=== PATIENT | male | born 1945 | race Caucasian/White ===

== ENCOUNTER 2018-09-09 13:11 | Inpatient (IN) ==
[2018-09-09 14:01] LABS: BASO# 0.03 X1000 (0.0-0.2); BASO% 0.5 % (0.0-0.8); EOS# 0.13 X1000 (0.0-0.7); EOS% 2.1 % (0.0-10.0); HEMATOCRIT 54.5 % (42.0-52.0); HEMOGLOBIN 18.1 g/dL (14.0-18.0); IMM GRAN# 0.04 X1000 (0.0-0.04); IMM GRAN% 0.6 % (0.0-0.5); LYMPH# 0.73 X1000 (1.2-3.4); LYMPH% 11.5 % (20.5-51.1); MCH 30.6 PG (27-31); MCHC 33.2 g/dL (33-37); MCV 92.2 FL (81-99); MONO# 0.39 X1000 (0.11-0.59); MONO% 6.2 % (1.7-9.3); MPV 10.1 FL (7.4-10.4); NEUT# 5.01 X1000 (1.4-6.5); NEUT% 79.1 % (42.2-75.2); PLT 240 X1000 (130-400); RBC 5.91 XMIL (4.7-6.1); RDW 14.8 % (11.5-14.5); WBC 6.33 X1000 (4.8-10.8)
[2018-09-09] MEDS ORDERED: DILAUDID IV ONE (14:10)
[2018-09-09] MEDS ORDERED: NS 1,000 ML IV ONE (14:11)
[2018-09-09 14:25] LABS: AGAP 13; ALB/GLOB RATIO 1.4; ALBUMIN 4.5 g/dL (3.5-5.0); ALKALINE PHOSPHATASE 84 U/L (32-122); BUN 14 mg/dL (8-22); CALCIUM 9.9 mg/dL (8.8-10.2); CHLORIDE 102 mmol/L (98-107); COSMO 284; ESTIMATED GFR > 60; GLUCOSE 180 mg/dL (70-104); GOT 27 U/L (10-34); GPT 21 U/L (10-44); POTASSIUM 4.1 mmol/L (3.5-5.1); SODIUM 140 mmol/L (136-145); TCO2 25 mmol/L (25-35); TOTAL BILIRUBIN 1.35 mg/dL (0.20-1.00); TOTAL PROTEIN 7.8 g/dL (6.3-8.3)
--- NOTE | 2018-09-09 14:25 | Diag Imaging Result Doc PS360 ---
EXAM: FLAT/UPRIGHT ABD/1 VIEW CHEST - 09/09/2018 HISTORY: abdominal pain TECHNIQUE: Supine and upright abdomen one view chest COMPARISON: 09/15/2016 chest two views FINDINGS: The bowel gas pattern is unremarkable. There is no free air identified. There is some residual oral contrast from the 09/08/2018 CT abdomen/pelvis in the colon. Upright chest shows stable cardiomegaly. There are sternal wires from previous surgery again seen. There are stable mild interstitial scarring. There is no consolidation, pleural effusion, or pneumothorax identified. IMPRESSION: Unremarkable bowel gas pattern. Stable cardiomegaly and mild pulmonary interstitial scarring. Electronically signed by Leonel Chan 09/09/2018 2:23 PM
[2018-09-09] MEDS ORDERED: D5 1/2 NS 1,000 ML IV ONE (15:39)
[2018-09-09] MEDS ORDERED: NORCO-10 PO PRN (15:43)
[2018-09-09] MEDS ORDERED: COLACE PO SCH (15:45)
[2018-09-09] MEDS ORDERED: ZOFRAN IV ONE (15:46)
--- NOTE | 2018-09-09 15:52 | PROVIDER DOCUMENTATION ---
This chart was entered by Filomena Land Scribe, acting as scribe for Wagner Pelayo DO. HPI-General Adult - General Chief Complaint: Groin Pain Stated Complaint: HERNIA PAIN Time Seen by Provider: 09/09/18 13:25 Source: patient Allergies/Adverse Reactions: Patient Allergies Allergy/AdvReac Type Severity Reaction Status Date / Time levofloxacin [From Levaquin] Allergy RASH Verified 09/09/18 13:23 Hmbpqmy-Ist-Jcq Reductase AdvReac Unknown Verified 09/09/18 13:23 Inhibitor Home Medications: Home Medication List Medication Instructions Recorded Confirmed Last Taken Type Trazodone [Desyrel] 75 mg PO QHS 12/02/11 09/07/18 09/06/18 History Aspirin [Adult Low Dose Aspirin EC] 81 mg PO HS 12/02/16 09/07/18 09/06/18 History Furosemide [Lasix] 40 mg PO DAILY 12/02/16 09/07/18 09/06/18 History Potassium Chloride 10 meq PO DAILY 12/02/16 09/07/18 09/06/18 History Allopurinol [Zyloprim] 300 mg PO PRN PRN 09/07/18 09/07/18 Unknown History Apixaban [Eliquis] 5 mg PO BID 09/07/18 09/07/18 09/07/18 History Valsartan 160 mg PO DAILY 09/07/18 09/07/18 09/06/18 History Vortioxetine Hydrobromide 10 mg PO DAILY 09/07/18 09/07/18 09/06/18 History [Trintellix] Oxycodone HCl/Acetaminophen 1 - 2 ea PO Q6-8H PRN PRN #20 tab 09/08/18 Unknown Rx [Percocet 5-325 mg Tablet] - History of Present Illness -Gen Adult Nature of Presenting Problems: 72 y/o male presents to ED with worsening L groin pain onset 2 days ago. Pt reports he has an inguinal hernia and was seen in ED Monday for same. Pt states lying down exacerbates his pain. Pt reports he took oxycodone prior to arrival and he feels better now. Pt also complains of chronic L shoulder pain. Pt is alert and oriented. Location of Pain/Injury: reports: upper extremity, other (L groin) Pain Radiation: reports: no radiation Quality of Pain: reports: sharp Severity: reports: moderate, severe Onset/Duration: reports: 2 days ago Timing: reports: still present Context/Activities at Onset: reports: none Modifying Factors: worse with: lying down, palpation Associated Symptoms: reports: joint pain (L shoulder), other (L groin pain) Similar Symptoms Previously?: Yes Recently seen or treated by another doctor?: Yes Review of Systems - Adult - REVIEW OF SYSTEMS - ADULT Constitutional: denies: chills, fever Eyes: reports: no symptoms reported Ears, Nose, Mouth & Throat: reports: no symptoms reported Cardiovascular: denies: chest pain, palpitations Respiratory: denies: cough, shortness of breath Gastrointestinal: reports: other (L groin pain). denies: abdominal pain, diarrhea, nausea, vomiting Genitourinary: reports: no symptoms reported Musculoskeletal: reports: joint pain (L shoulder). denies: back pain Integumentary: reports: no symptoms reported Neurological: denies: dizziness/vertigo, seizure Psychiatric: reports: no symptoms reported Endocrine: reports: no symptoms reported Hematologic/Lymphatic: reports: no symptoms reported Allergic/Immunologic: reports: no symptoms reported All Other Systems: Reviewed and Negative Past History - Adult - PAST MEDICAL HISTORY-ADULT Review of Records: reports: Old Records Reviewed, Nursing Assessment Review, Medications Reviewed Major Childhood Illnesses: reports: denies history Cardiovascular: reports: A-Fib (cardioverted), CAD, CHF, HTN, hyperlipidemia, [place] Respiratory: reports: COPD, sleep apnea Genitourinary: reports: kidney stones Neurological: reports: cancer/tumor (brain) Psychiatric: reports: anxiety, depression Endocrine/Immune: reports: Diabetes - PRIOR SURGERIES/PROCEDURES Surgical/Procedure History: reports: appendectomy, CABG, cardiac stent, hernia repair, other (brain cysts removal; kidney stent; brain tumor removed; cystoscopy; cardioversion) - IMMUNIZATION STATUS Childhood Immunizations: See Nurse Assessment Flu Vaccine: See Nurse Assessment - FAMILY HISTORY Family History: reviewed, not pertinent - SOCIAL HISTORY Smoking: quit greater than 1 year Substance Use: none/never Alcohol Use Frequency: never Living Situation: family Physical Exam-General - PHYSICAL EXAM-ADULT Initial Vital Signs Reviewed: Yes - CONSTITUTIONAL General Appearance: appears well, alert, no apparent distress - EYES Eyes: PERRL/EOMI, pink conjunctivae - HEAD, EARS, NOSE, MOUTH & THROAT HENMT: normocephalic/atraumatic, moist mucous membranes, normal ENT inspection - NECK Neck: non-tender, full range of motion - RESPIRATORY Respiratory: chest non-tender, lungs clear, normal breath sounds, other (scar from CABG to anterior chest) - CARDIOVASCULAR Cardiovascular: normal peripheral pulses, regular rate, rhythm - GASTROINTESTINAL (ABDOMEN) Abdominal Exam: normal bowel sounds, soft, tenderness (L groin), hernia (L inguinal) - MUSCULOSKELETAL Back Exam: normal inspection, no CVA tenderness, no vertebral tenderness Extremity: normal range of motion, non-tender, normal gait, other (lengthy scar to L medial leg) - SKIN Integumentary: normal color, warm/dry, other (scar from CABG to anterior chest; lengthy scar to L medial leg) - NEUROLOGIC Neurologic: grossly normal - PSYCHIATRIC Psych/Mental Status: normal mood/affect, normal thought content, normal thought process, oriented x 3 Progress - PLAN OF CARE/RESULTS Progress/Plan/Lab Results: Vital Signs - 8 hr 09/09/18 13:12 Temperature 98.0 F Pulse Rate 87 Respiratory Rate 20 Blood Pressure 161/98 O2 Sat by Pulse Oximetry 96 Orders Category Date Time Status FLAT/UPRIGHT ABD/1 VIEW CHEST [RAD] Stat Exams 09/09/18 13:33 Ordered CBC WITH ELECTRONIC DIFF [HEME] Stat Lab 09/09/18 13:33 Uncollected COMPREHENSIVE METABOLIC PANEL [CHEM] Stat Lab 09/09/18 13:33 Ordered Laboratory Tests 09/09/18 09/09/18 13:45 13:45 WBC 6.33 RBC 5.91 Hgb 18.1 H Hct 54.5 H MCV 92.2 MCH 30.6 MCHC 33.2 RDW Std Deviation 14.8 H Plt Count 240 MPV 10.1 Immature Gran % (Auto) 0.6 H Neut % (Auto) 79.1 H Lymph % (Auto) 11.5 L [place]he % (Auto) 6.2 Eos % (Auto) 2.1 Baso % (Auto) 0.5 Immature Gran # (Auto) 0.04 Neut # (Auto) 5.01 Lymph # (Auto) 0.73 L [place]he # (Auto) 0.39 Eos # (Auto) 0.13 Baso # (Auto) 0.03 Sodium 140 Potassium 4.1 Chloride 102 Carbon Dioxide 25 Anion Gap 13 BUN 14 Creatinine 1.0 Estimated GFR/1.73 m2 > 60 BUN/Creatinine Ratio 14 Glucose 180 H Calculated Osmolality 284 Calcium 9.9 Total Bilirubin 1.35 H AST 27 ALT 21 Alkaline Phosphatase 84 Total Protein 7.8 Albumin 4.5 Globulin 3.3 Albumin/Globulin Ratio 1.4 Result Diagrams: 09/09/18 13:45 09/09/18 13:45 - EKG 1 Time of EKG reading by physician:: 13:42 EKG Read and Signed by:: Wagner Pelayo EKG Interpretation (*Must complete 3 of following elements*): Abnormal Rate: 78 Rhythm: Afib with a competing junctional pacemaker Gautier: normal QRS: normal NH Interval: normal ST Wave: normal - XRAY 1 XRAY Study: Abdomen Impression: See EMR Report ([facility] [address], [address], [place] [address] Department of Imaging Patient: MARCO ANTONIO MCCORMACK [facility] Date: 09/09/18#: [id number] : 1945DM Status: REG ERAt#: [id number] Age/Sex: 72/MRoom/Bed: Loc: ED Ordering Physician: Wagner Pelayo DO Family Physician: Wagner Pelayo DO Reason for Procedure: abdominal pain Signed EXAM: FLAT/UPRIGHT ABD/1 VIEW CHEST - 09/09/2018 HISTORY: abdominal pain TECHNIQUE: Supine and upright abdomen one view chest COMPARISON: 09/15/2016 chest two views FINDINGS: The bowel gas pattern is unremarkable. There is no free air identified. There is some residual oral contrast from the 09/08/2018 CT abdomen/pelvis in the colon. Upright chest shows stable cardiomegaly. There are sternal wires from previous surgery again seen. There are stable mild interstitial scarring. There is no consolidation, pleural effusion, or pneumothorax identified. IMPRESSION: Unremarkable bowel gas pattern. Stable cardiomegaly and mild pulmonary inters titial scarring. Electronically signed by Leonel Chan 09/09/2018 2:23 PM 09/09/18 1423 Interpreting Physician: Leonel Chan MD Dictated Date/Time: 09/09/18 1419 cc: Wagner Pelayo DO; Wagner Pelayo DO) - CONSULTS/PCP/HOSPITALIST Notification #1 *Consult/PCP/Hospitalist*: Dr. Pan Time Discussed: 14:35 Reason/Comments: L inguinal hernia Consult Disposition: Will see in ED Departure - Departure Date of Disposition Decision: 09/09/18 Time of Disposition Decision: 15:33 DIAGNOSIS: Left inguinal hernia Disposition: ADMITTED INPATIENT 09 Certified Medical Emergency: Emergent Condition: Stable Referrals and Follow-Ups: Wagner Pelayo DO [Primary Care Provider] - - Critical Care Note This patient required my direct & personal management of CC.: No Attestation - Physician/ RAMONE Attestation Patient care was provided by Advanced Practice Provider:: No The physician spent face to face time with patient:: Yes Advanced Practice Provider documentation review:: Supervising physician onsite and consulted in the evaluation and care of this patient. The physician did have a face to face encounter with the patient. This chart was documented by the indicated scribe, (Filomena Ladn Scribe) and accurately reflects the services I performed and decisions made by me, Wagner Pelayo DO, as attested by the provider's signature.
[2018-09-09] MEDS ORDERED: LOVENOX SUBQ SCH ×2 (16:00→17:00)
[2018-09-09] MEDS: D5 1/2 NS 1,000 ML IV SCH (18:17)
[2018-09-09] MEDS: DIOVAN PO SCH ×2 (18:18→18:49)
[2018-09-09] MEDS: NORCO-10 PO PRN (18:19)
[2018-09-09] MEDS: LASIX IV SCH (18:19)
[2018-09-09] MEDS: ZYLOPRIM PO SCH (18:27)
[2018-09-09] MEDS: DILAUDID IV PRN ×2 (19:53→22:59)
[2018-09-09] MEDS: COLACE PO SCH ×2 (19:56→23:23)
[2018-09-09] MEDS: ZOFRAN PO PRN (19:57)
[2018-09-09] MEDS: DULCOLAX PR SCH ×2 (19:58→23:23)
[2018-09-09] MEDS ORDERED: DULCOLAX PR SCH (21:00)
[2018-09-09] MEDS: ZOFRAN IV PRN (22:58)
[2018-09-10] MEDS: DILAUDID IV PRN ×3 (01:59→07:01)
[2018-09-10] MEDS: ZOFRAN IV PRN ×3 (01:59→16:42)
[2018-09-10] MEDS: ZOFRAN PO PRN (01:59)
--- NOTE | 2018-09-10 07:07 | EKG Report ---
Test Performed on : 09/09/2018 1:42:00 PM Test Reason : abdominal pain Blood Pressure : / mmHG Vent. Rate : 078 BPM Atrial Rate : 100 BPM P-R Int : 000 ms QRS Dur : 096 ms QT Int : 402 ms P-R-T Axes : 000 068 020 degrees QTc Int : 458 ms Atrial fibrillation. with a competing junctional pacemaker. Abnormal ECG When compared with ECG of 06-APR-2016 22:39, No significant change was found Unconfirmed Result
[2018-09-10] MEDS: DIOVAN PO SCH ×2 (08:37→10:56)
[2018-09-10] MEDS: ZYLOPRIM PO SCH (08:37)
[2018-09-10] MEDS: LASIX IV SCH ×2 (08:37→08:40)
[2018-09-10] MEDS: COLACE PO SCH ×2 (08:37→21:33)
[2018-09-10] MEDS: D5 1/2 NS 1,000 ML IV SCH ×2 (10:56→17:45)
[2018-09-10] MEDS: NORCO-10 PO PRN ×2 (11:54→18:27)
[2018-09-10] MEDS ORDERED: GOLYTELY PO ONE (13:00)
--- NOTE | 2018-09-10 14:49 | EKG Report ---
Test Performed on : 09/10/2018 2:03:50 PM Test Reason : afib Blood Pressure : / mmHG Vent. Rate : 068 BPM Atrial Rate : 267 BPM P-R Int : 000 ms QRS Dur : 094 ms QT Int : 438 ms P-R-T Axes : 000 080 -12 degrees QTc Int : 465 ms Atrial fibrillation. Abnormal QRS-T angle, consider primary T wave abnormality Abnormal ECG When compared with ECG of 09-SEP-2018 13:42, (Unconfirmed) No significant change was found Confirmed by Cathleen LANGSTON, Rj Dee ([id number]) on 09/10/2018 5:06:44 PM
--- NOTE | 2018-09-10 15:03 | CARDIOLOGY CONSULTATION ---
DATE: 09/10/2018 REASON FOR CONSULTATION: Patient is admitted for left inguinal surgery and has significant cardiac history. Cardiology was consulted. HISTORY OF PRESENT ILLNESS: Mr. Candelaria was a 72-year-old gentleman who was admitted for inguinal hernia surgery. From a cardiac standpoint, he does not complain of chest pain. He has shortness of breath which has been stable. He takes Lasix on a p.r.n. basis. He is in chronic atrial fibrillation. There is no dizziness or syncope. REVIEW OF SYSTEMS: A 14-point review of systems was done. Gastrointestinal System: There is no history of nausea, vomiting, diarrhea. There is no history of hematemesis or melena. Central Nervous System: No focal weakness to suggest a CVA or TIA. Genitourinary System: There is no dysuria or hematuria. PAST MEDICAL HISTORY: 1. Coronary artery disease status post coronary artery bypass grafting 04/24/2006 with GARCIA to left anterior descending artery, SVG to OM, SVG to PDA, SVG to diagonal. 2. Chronic atrial fibrillation. Had ablation in 2012. Had recurrence in 2014. Underwent cardioversion. Is currently in persistent atrial fibrillation. 3. He has also had atrial flutter for which he underwent ablation in 2012. 4. Cardiomyopathy ejection fraction of 50% in the past. 5. History of diastolic heart failure. 6. Hypertension diabetes. 7. Inguinal hernia. MEDICATION: His home medications include: 1. Trazodone 75. 2. Potassium supplements. 3. Lasix p.r.n. 4. Enteric-coated aspirin 81. 5. Allopurinol 300 at bedtime. 6. Valsartan 160. 7. Trintellix 10 mg a day. 8. Eliquis 5 mg p.o. b.i.d. 9. Pain medications. ALLERGIES: He is allergic to levofloxacin and statins. PHYSICAL EXAMINATION: Blood pressure was 115/76. First and second heart sounds were heard. There was no S3 gallop. Respiratory System: Distant breath sounds. There are no crepitations or rhonchi. Abdomen was soft. Examination of extremities revealed trace edema. ASSESSMENT AND PLAN: Mr. Jeremiah Candelaria is a 72-year-old gentleman with: 1. History of coronary artery disease. 2. Coronary artery bypass grafting. 3. Chronic atrial fibrillation. 4. Chronic obstructive pulmonary disease. 5. History of diastolic heart failure. 6. Hypertension. He is currently stable. Electrocardiogram revealed atrial fibrillation, rate under control. RECOMMENDATIONS: I have not made any changes. His Eliquis has been held, given his elevated CHADS-VASc score. We will give him Lovenox, 2 doses. He is scheduled to undergo surgery on Monday afternoon. Restart Eliquis after surgery to when Dr. Walls deems fit. In the interim, we will continue with his STUART inhibitors and Lasix, as well. Thank you for the consult. We will follow hospital course. cc: MD Bogdan Mcneill MD
[2018-09-10] MEDS: LASIX PO SCH (15:28)
[2018-09-10] MEDS: LOVENOX SUBQ SCH (15:31)
[2018-09-10] MEDS ORDERED: TRINTELLIX PO SCH (18:45)
[2018-09-10] MEDS: TRINTELLIX PO SCH (21:32)
[2018-09-10] MEDS: DESYREL PO SCH (21:33)
[2018-09-10] MEDS: DULCOLAX PR SCH (21:42)
[2018-09-11] MEDS: NORCO-10 PO PRN ×3 (00:33→21:03)
[2018-09-11] MEDS: LOVENOX SUBQ SCH (04:30)
[2018-09-11] MEDS: D5 1/2 NS 1,000 ML IV SCH (06:30)
[2018-09-11 06:46] LABS: BASO# 0.05 X1000 (0.0-0.2); BASO% 0.8 % (0.0-0.8); EOS# 0.38 X1000 (0.0-0.7); EOS% 5.9 % (0.0-10.0); HEMOGLOBIN 16.1 g/dL (14.0-18.0); IMM GRAN# 0.02 X1000 (0.0-0.04); IMM GRAN% 0.3 % (0.0-0.5); LYMPH# 1.37 X1000 (1.2-3.4); LYMPH% 21.2 % (20.5-51.1); MCH 31.1 PG (27-31); MCHC 32.9 g/dL (33-37); MCV 94.8 FL (81-99); MONO# 0.75 X1000 (0.11-0.59); MONO% 11.6 % (1.7-9.3); MPV 10.7 FL (7.4-10.4); NEUT# 3.89 X1000 (1.4-6.5); NEUT% 60.2 % (42.2-75.2); PLT 191 X1000 (130-400); RBC 5.17 XMIL (4.7-6.1); RDW 14.7 % (11.5-14.5); WBC 6.46 X1000 (4.8-10.8)
[2018-09-11 06:56] LABS: AGAP 10; BUN 14 mg/dL (8-22); CHLORIDE 104 mmol/L (98-107); COSMO 287; CREATININE 0.9 mg/dL (0.7-1.2); ESTIMATED GFR > 60; GLUCOSE 134 mg/dL (70-104); POTASSIUM 3.9 mmol/L (3.5-5.1); SODIUM 143 mmol/L (136-145); TCO2 29 mmol/L (25-35)
[2018-09-11] MEDS ORDERED: TRINTELLIX PO SCH (09:00)
[2018-09-11] MEDS: LASIX PO SCH (09:32)
[2018-09-11] MEDS: FLEET ENEMA PR ONE ×2 (09:32→15:09)
[2018-09-11] MEDS: TRINTELLIX PO SCH ×2 (09:32→09:34)
[2018-09-11] MEDS: DIOVAN PO SCH (09:32)
[2018-09-11] MEDS: COLACE PO SCH ×2 (09:32→21:02)
[2018-09-11] MEDS: KLOR-CON PO SCH (09:32)
[2018-09-11] MEDS: ZYLOPRIM PO SCH (09:32)
[2018-09-11] MEDS ORDERED: CALMOSEPTINE OINTMENT TOP PRN (15:12)
[2018-09-11] MEDS: ZOFRAN IV PRN (16:21)
[2018-09-11] MEDS: DESYREL PO SCH (21:02)
[2018-09-11] MEDS: ZOFRAN PO PRN (21:03)
[2018-09-11] MEDS: DULCOLAX PR SCH (21:05)
[2018-09-12] MEDS ORDERED: ATIVAN IV ONE (05:05)
[2018-09-12] MEDS: COLACE PO SCH ×2 (08:29→21:07)
[2018-09-12] MEDS: LASIX PO SCH (08:30)
[2018-09-12] MEDS: KLOR-CON PO SCH (08:30)
[2018-09-12] MEDS: TRINTELLIX PO SCH (08:30)
[2018-09-12] MEDS: ZYLOPRIM PO SCH (08:30)
[2018-09-12] MEDS: DIOVAN PO SCH (08:31)
[2018-09-12 08:37] LABS: BASO# 0.05 X1000 (0.0-0.2); BASO% 0.8 % (0.0-0.8); EOS# 0.36 X1000 (0.0-0.7); EOS% 6.1 % (0.0-10.0); HEMATOCRIT 47.8 % (42.0-52.0); HEMOGLOBIN 15.6 g/dL (14.0-18.0); IMM GRAN# 0.03 X1000 (0.0-0.04); IMM GRAN% 0.5 % (0.0-0.5); LYMPH# 0.88 X1000 (1.2-3.4); LYMPH% 14.9 % (20.5-51.1); MCH 30.9 PG (27-31); MCHC 32.6 g/dL (33-37); MCV 94.7 FL (81-99); MONO# 0.59 X1000 (0.11-0.59); MPV 11.1 FL (7.4-10.4); NEUT# 4.01 X1000 (1.4-6.5); NEUT% 67.7 % (42.2-75.2); PLT 194 X1000 (130-400); RBC 5.05 XMIL (4.7-6.1); RDW 14.5 % (11.5-14.5); WBC 5.92 X1000 (4.8-10.8)
[2018-09-12 08:53] LABS: AGAP 11; BUN 9 mg/dL (8-22); CALCIUM 9.1 mg/dL (8.8-10.2); CHLORIDE 102 mmol/L (98-107); COSMO 283; ESTIMATED GFR > 60; GLUCOSE 118 mg/dL (70-104); POTASSIUM 3.4 mmol/L (3.5-5.1); SODIUM 142 mmol/L (136-145); TCO2 29 mmol/L (25-35)
[2018-09-12] MEDS ORDERED: FENTANYL ONE ×2 (10:16→10:23)
[2018-09-12] MEDS ORDERED: DIPRIVAN 1% ONE ×2 (10:16→10:23)
[2018-09-12] MEDS ORDERED: ZEMURON ONE (10:19)
[2018-09-12] MEDS ORDERED: QUELICIN (DOSE) ONE ×2 (10:19→10:25)
[2018-09-12] MEDS ORDERED: SODIUM CHLORIDE 0.9% 10 ML ONE (10:25)
[2018-09-12] MEDS ORDERED: NORCURON ONE (10:25)
[2018-09-12] MEDS ORDERED: XYLOCAINE-MPF 2% ONE (10:26)
[2018-09-12] MEDS ORDERED: MORPHINE ONE (10:27)
[2018-09-12] MEDS ORDERED: NEOSTIGMINE ONE ×2 (10:28→11:43)
[2018-09-12] MEDS ORDERED: ROBINUL ONE ×2 (10:29→11:43)
[2018-09-12] MEDS ORDERED: SENSORCAINE-MPF 0.5%/EPI 1:200,000 ONE (10:37)
[2018-09-12] MEDS ORDERED: KEFZOL 1 GM/D5W 1 GM/50 ML IVPB ONE (10:51)
[2018-09-12] MEDS ORDERED: DECADRON ONE (11:16)
[2018-09-12] MEDS ORDERED: NEO-SYNEPHRINE ONE (11:18)
[2018-09-12] MEDS ORDERED: VENTOLIN HFA ONE (11:56)
[2018-09-12 12:19] LABS: URINE SOURCE CATH
[2018-09-12] MEDS ORDERED: D5 1/2 NS 1,000 ML ONE (12:21)
[2018-09-12 12:25] LABS: BILIRUBIN URINE NEGATIVE (NEGATIVE); BLOOD URINE TRACE (NEGATIVE); COLOR YELLOW; GLUCOSE URINE NEGATIVE (NEGATIVE); KETONE URINE NEGATIVE (NEGATIVE); LEUKOCYTES URINE NEGATIVE (NEGATIVE); NITRITE URINE NEGATIVE (NEGATIVE); PROTEIN URINE 300 mg/dL (NEGATIVE); SP GRAVITY URINE 1.015; TURBIDITY URINE HAZY (CLEAR); UROBILINOGEN URINE 2 mg/dL (NORMAL)
[2018-09-12 12:31] LABS: UR EPITHELIAL CELLS >10 /HPF (<10); URINE BACTERIA NEGATIVE /HPF; URINE RBC <10 /HPF (<10); URINE WBC <10 /HPF (<10)
[2018-09-12 12:47] LABS: URINE CASTS GRANULAR PRESENT; URINE YEAST NONE SEEN
--- NOTE | 2018-09-12 12:48 | OPERATIVE NOTE ---
PROCEDURE DATE: 09/12/2018 PREOPERATIVE DIAGNOSIS: Incarcerated left inguinal hernia that is recurrent. POSTOPERATIVE DIAGNOSIS: Incarcerated left inguinal hernia that is recurrent. PROCEDURE: Repair with large mesh plug and overlay. Recurrence was in the medial aspect. The patient had 2 previous repairs, 1 laparoscopic, 1 open. The patient was brought to the operating room. After satisfactory induction of IV and endotracheal anesthesia, athrombic TEDs and Nunez catheter were placed. His left groin and abdomen were prepped and draped in the appropriate manner in case of the need for laparotomy. The old hernia scar was incised with dissection taken down through skin and the scar tissue. Hemostasis was obtained by electrocautery. External oblique was somewhat attenuated. It was incised in the pathway of its fibers down to and opening the external inguinal ring. The cord structures were mobilized. There was an indirect hernia sac in the medial aspect. The colon was reduced manually. The sac was teased away from the cord structures and the sac was amputated with a TA-30 stapler at the internal ring. There was no evidence of visceral involvement in this. The staple line subsequently had a large mesh plug sewed to it with 0 Surgilon. The contents reduced and sewed to surrounding transversalis and inguinal ligament with 0 Surgilon. Mesh overlay was subsequently placed and likewise sewed with 0 Surgilon. On completion, the medial aspect and the reconstructed floor appeared to be satisfactory. The wound was irrigated with 10 mL of Marcaine with epinephrine. The external oblique was closed over the cord structures with 3-0 Vicryl. The subcutaneous was infiltrated with another 10 mL of Marcaine and closed with 3-0 Vicryl and the skin itself with 4-0 Vicryl subcuticular. Steri-Strips, Telfa, and OpSite were applied. The patient was awakened and extubated in the operating room and transferred to recovery. Nunez catheter was left indwelling. ESTIMATED BLOOD LOSS: About 10 mL. cc: Bogdan Pan MD
[2018-09-12] MEDS: ZOFRAN IV PRN ×2 (13:46→21:14)
[2018-09-12] MEDS: NORCO-10 PO PRN ×2 (13:46→21:09)
[2018-09-12] MEDS ORDERED: MORPHINE IV PRN (14:44)
[2018-09-12] MEDS ORDERED: ZOFRAN IV PRN (14:45)
[2018-09-12] MEDS ORDERED: ZOFRAN PO PRN (14:46)
[2018-09-12] MEDS ORDERED: ATIVAN IV PRN (15:06)
[2018-09-12] MEDS: KEFZOL 1 GM/D5W 1 GM/50 ML IVPB IV SCH (18:20)
[2018-09-12] MEDS: D5 1/2 NS 1,000 ML IV SCH (18:24)
[2018-09-12] MEDS: PERIDEX MT SCH (21:07)
[2018-09-12] MEDS: DESYREL PO SCH (21:07)
[2018-09-13] MEDS: KEFZOL 1 GM/D5W 1 GM/50 ML IVPB IV SCH ×2 (02:49→12:03)
[2018-09-13] MEDS: DULCOLAX PR SCH (04:23)
[2018-09-13] MEDS: PERIDEX MT SCH (08:26)
[2018-09-13] MEDS: COLACE PO SCH (08:26)
[2018-09-13] MEDS: DIOVAN PO SCH ×2 (08:26→08:32)
[2018-09-13] MEDS: KLOR-CON PO SCH (08:26)
[2018-09-13] MEDS: ZYLOPRIM PO SCH (08:26)
[2018-09-13] MEDS: TRINTELLIX PO SCH (08:27)
[2018-09-13] MEDS: LASIX PO SCH ×3 (08:27→09:44)
[2018-09-13] MEDS: D5 1/2 NS 1,000 ML IV SCH (08:38)
[2018-09-13] MEDS ORDERED: LOVENOX SUBQ SCH ×2 (09:00)
[2018-09-13] MEDS: ZOFRAN IV PRN (09:44)
[2018-09-13] MEDS: NORCO-10 PO PRN (09:44)
[2018-09-13 11:46] VITALS: BP 143/76
--- NOTE | 2018-10-09 15:58 | DISCHARGE SUMMARY ---
ADMISSION DATE: 09/09/2018 DISCHARGE DATE: 09/13/2018 DIAGNOSES: 1. Incarcerated left inguinal hernia. 2. History of significant coronary artery disease. 3. Chronic atrial fibrillation on chronic anticoagulation therapy. 4. Obesity. PROCEDURE PERFORMED: Repair of large recurrent left inguinal hernia. The patient is a 72-year-old, obese white male seen in the emergency room with an incarcerated recurrent left inguinal hernia. CT scan revealed sigmoid colon contents without obstruction. Past history significant for history of coronary artery bypass and chronic atrial fibrillation. He is seen by Dr. Rasmussen and is on Eliquis for the atrial fibrillation. He has had 2 previous repairs, 1 laparoscopic and 1 open on the left side. CT scan also revealed gallstones. The patient was admitted, placed on Lovenox. The Eliquis was held, and subsequently he tolerated a bowel prep and underwent the hernia repair on 09/12. Hospitalization was largely uneventful. Nunez catheter was subsequently removed on 09/13. The patient was able to void spontaneously. Eliquis is resumed, and he will be seen in the office in 1 week's time. cc: Bogdan Pan MD
== END 2018-09-13 13:21 | disposition home or self-care (01) | DRG 351 ==
LOC: ED 13:11 → 4N 16:16
PROVIDERS: ADMIT Surgery; ATTEND Surgery
CPT/HCPCS: 74022; 74177; 80048; 80053; 81001; 82378; 84153; 85025; 88302; 93005; 93010; 94761; 94799; 96361; 96374; 96376; 99284; 99285; A9270; G0103; J0330; J0690; J1100; J1170; J1650; J1940; J2060; J2270; J2370; J2405; J3010; J7030; Q9967; XXXXX

== ENCOUNTER 2018-11-26 09:32 | Inpatient (IN) ==
[2018-11-26] MEDS ORDERED: ASPIRIN PO ONE ×2 (09:50→10:29)
[2018-11-26] MEDS ORDERED: NITROGLYCERIN SL PRN (09:50)
[2018-11-26] MEDS ORDERED: DILAUDID IV ONE (09:51)
[2018-11-26] MEDS ORDERED: ZOFRAN IV ONE (09:51)
--- NOTE | 2018-11-26 09:55 | EKG Report ---
Test Performed on : 11/26/2018 09:30:12 AM Test Reason : CP Blood Pressure : / mmHG Vent. Rate : 087 BPM Atrial Rate : 064 BPM P-R Int : 000 ms QRS Dur : 090 ms QT Int : 364 ms P-R-T Axes : 000 080 -10 degrees QTc Int : 438 ms Atrial fibrillation. with premature ventricular or aberrantly conducted complexes. Nonspecific ST abnormality Abnormal QRS-T angle, consider primary T wave abnormality Abnormal ECG No previous ECGs available Unconfirmed Result
--- NOTE | 2018-11-26 10:15 | Diag Imaging Result Doc PS360 ---
CHEST-1 VIEW - 11/26/2018 INDICATION: cp COMPARISON: 09/09/2018 FINDINGS: Stable sternotomy wires. There is significant cardiomegaly and diffuse pulmonary vascular congestion. There are diffuse bilateral interstitial infiltrates, with fine curly B lines present bilaterally. No large pleural effusion. IMPRESSION: Cardiomegaly and pulmonary edema. Electronically signed by Johnathan Juen 11/26/2018 10:13 AM
[2018-11-26] MEDS ORDERED: ASPIRIN ONE (10:29)
[2018-11-26 10:40] LABS: BASO# 0.03 X1000 (0.0-0.2); BASO% 0.4 % (0.0-0.8); EOS# 0.13 X1000 (0.0-0.7); EOS% 1.7 % (0.0-10.0); HEMATOCRIT 54.4 % (42.0-52.0); HEMOGLOBIN 18.3 g/dL (14.0-18.0); IMM GRAN# 0.14 X1000 (0.0-0.04); IMM GRAN% 1.9 % (0.0-0.5); LYMPH# 1.08 X1000 (1.2-3.4); LYMPH% 14.5 % (20.5-51.1); MCH 30.7 PG (27-31); MCHC 33.6 g/dL (33-37); MCV 91.3 FL (81-99); MONO# 0.62 X1000 (0.11-0.59); MONO% 8.3 % (1.7-9.3); MPV 10.4 FL (7.4-10.4); NEUT# 5.47 X1000 (1.4-6.5); NEUT% 73.2 % (42.2-75.2); PLT 201 X1000 (130-400); RBC 5.96 XMIL (4.7-6.1); RDW 15.6 % (11.5-14.5); WBC 7.47 X1000 (4.8-10.8)
[2018-11-26 10:42] LABS: INR 1.1; PROTIME 14.4 Seconds (11.0-16.0)
[2018-11-26 10:43] LABS: PTT 32.6 Seconds (22.3-41.8)
[2018-11-26 11:00] LABS: AGAP 15; ALB/GLOB RATIO 1.5; ALBUMIN 4.3 g/dL (3.5-5.0); ALKALINE PHOSPHATASE 91 U/L (32-122); BUN 13 mg/dL (8-22); CALCIUM 9.6 mg/dL (8.8-10.2); CHLORIDE 101 mmol/L (98-107); COSMO 282; CREATININE 0.7 mg/dL (0.7-1.2); ESTIMATED GFR > 60; GLUCOSE 175 mg/dL (70-104); GOT 23 U/L (10-34); GPT 21 U/L (10-44); POTASSIUM 4.3 mmol/L (3.5-5.1); SODIUM 139 mmol/L (136-145); TCO2 23 mmol/L (25-35); TOTAL BILIRUBIN 0.86 mg/dL (0.20-1.00); TOTAL PROTEIN 7.1 g/dL (6.3-8.3)
[2018-11-26] MEDS ORDERED: ROCEPHIN 1 GM in NS 50 ML IV ONE (11:29)
--- NOTE | 2018-11-26 11:39 | PROVIDER DOCUMENTATION ---
This chart was entered by Danette Gaffney Scribe, acting as scribe for Jimmy Watts MD. HPI-Chest Pain - General Chief Complaint: Chest Pain Stated Complaint: CHEST PAIN Time Seen by Provider: 11/26/18 09:43 Source: patient Allergies/Adverse Reactions: Patient Allergies Allergy/AdvReac Type Severity Reaction Status Date / Time levofloxacin [From Levaquin] Allergy RASH Verified 09/09/18 13:23 Jugscti-Uos-Tbg Reductase AdvReac Unknown Verified 09/09/18 13:23 Inhibitor Home Medications: Home Medication List Medication Instructions Recorded Confirmed Last Taken Type Trazodone [Desyrel] 75 mg PO QHS 12/02/11 11/08/18 11/07/18 21:00 History Aspirin [Adult Low Dose Aspirin EC] 81 mg PO DAILY 12/02/16 11/08/18 11/03/18 History Furosemide [Lasix] 40 mg PO DAILY PRN 12/02/16 11/08/18 09/06/18 History Potassium Chloride 10 meq PO PRN PRN 12/02/16 11/08/18 09/06/18 History Allopurinol [Zyloprim] 300 mg PO HS 09/07/18 11/08/18 11/07/18 21:00 History Apixaban [Eliquis] 5 mg PO BID 09/07/18 11/08/18 11/02/18 History Valsartan 160 mg PO HS 09/07/18 11/08/18 11/07/18 21:00 History Duloxetine [Cymbalta] 60 mg PO DAILY 11/05/18 11/08/18 11/07/18 08:00 History [place] 2 cap PO DAILY 11/05/18 11/08/18 11/07/18 08:00 History Ubidecarenone/Vit E Acetate [Co 1 ea PO DAILY 11/05/18 11/08/18 11/07/18 08:00 History Q-10 100 mg Softgel] Vitamin B Complex 1 ea PO DAILY 11/05/18 11/08/18 11/07/18 08:00 History - History of Present Illness-CP Nature of Presenting Problem: 73 yowm c/o cp, sob, tingling bilat hands and feet starting this am. pt did not take bp meds this am. pt has hx of cabg x 4, cad, mi, afib, chf, copd and htn. Dr. Aguilar pt. Dr. Pelayo pcp. Location: reports: central Chest Pain Radiation: reports: no radiation Quality of Pain: reports: aching, pressure Severity in ED: moderate Onset/Duration: 1 hour ago Timing: still present Context/Activities at Onset: reports: light activity Modifying Factors: improves with: nothing Associated Symptoms: reports: shortness of breath Nitro Today/Relief: no nitro taken today Aspirin Treatment Today: 81 mg x 1, provided by ED Prior Chest Pain/Cardiac Workup: reports: heart attack Similar Symptoms Previously?: Yes Recently Seen Here or By Another Healthcare Provider: No Review of Systems - Adult - REVIEW OF SYSTEMS - ADULT Constitutional: reports: no symptoms reported. denies: chills, fever, fatique Eyes: reports: no symptoms reported Ears, Nose, Mouth & Throat: reports: no symptoms reported Cardiovascular: reports: see HPI, chest pain. denies: heart murmur, irregular heart rate, orthopnea Respiratory: reports: see HPI, shortness of breath. denies: cough, excessive sputum production, hemoptysis Gastrointestinal: reports: no symptoms reported Genitourinary: reports: no symptoms reported Musculoskeletal: reports: no symptoms reported Integumentary: reports: no symptoms reported Neurological: reports: see HPI, other (tingling bilat hands and rt foot). denies: ataxia, dizziness/vertigo, headache/migraines Psychiatric: reports: no symptoms reported Endocrine: reports: no symptoms reported Hematologic/Lymphatic: reports: no symptoms reported Allergic/Immunologic: reports: no symptoms reported All Other Systems: Reviewed and Negative Past History - Adult - PAST MEDICAL HISTORY-ADULT Review of Records: reports: Old Records Reviewed, Nursing Assessment Review, Medications Reviewed, Social history reviewed & non-contributory. Major Childhood Illnesses: reports: denies history Cardiovascular: reports: A-Fib (cardioverted), CAD, CHF, HTN, hyperlipidemia, LA Respiratory: reports: COPD, sleep apnea Gastrointestinal: reports: denies history Obstetrical/Gynecological: reports: denies history Genitourinary: reports: kidney stones Musculoskeletal: reports: denies history Neurological: reports: cancer/tumor (brain) Psychiatric: reports: anxiety, depression Endocrine/Immune: reports: Diabetes Other Conditions: reports: denies history - PRIOR SURGERIES/PROCEDURES Surgical/Procedure History: reports: appendectomy, CABG, cardiac stent, hernia repair, other (brain cysts removal; kidney stent; brain tumor removed; cystoscopy; cardioversion) - IMMUNIZATION STATUS Childhood Immunizations: See Nurse Assessment Flu Vaccine: See Nurse Assessment - FAMILY HISTORY Family History: reviewed, not pertinent Physical Exam-General - PHYSICAL EXAM-ADULT Initial Vital Signs Reviewed: Yes - CONSTITUTIONAL General Appearance: appears well, alert, no apparent distress - EYES Eyes: PERRL/EOMI, pink conjunctivae - HEAD, EARS, NOSE, MOUTH & THROAT HENMT: normocephalic/atraumatic, moist mucous membranes, normal ENT inspection - NECK Neck: non-tender, full range of motion, supple, normal inspection - RESPIRATORY Respiratory: chest non-tender, lungs clear, normal breath sounds, no pleuratic chest pain, no respiratory distress, no accessory muscle use. negative: respiratory distress, decreased breath sounds, accessory muscle use, crackles, wheezing - CARDIOVASCULAR Cardiovascular: normal peripheral pulses, regular rate, rhythm, no edema, no gallop, no JVD, no murmur. negative: JVD, bradycardia, tachycardia - GASTROINTESTINAL (ABDOMEN) Abdominal Exam: normal bowel sounds, non tender, soft - LYMPHATIC Lymphatic: no adenopathy - MUSCULOSKELETAL Back Exam: normal inspection, no CVA tenderness, no vertebral tenderness Extremity: normal range of motion, non-tender, normal inspection Peripheral Pulses: radial (R): 2+, radial (L): 2+ - SKIN Integumentary: normal color, normal turgor, warm/dry - NEUROLOGIC Neurologic: grossly normal, no motor/sensory deficits - PSYCHIATRIC Psych/Mental Status: normal mood/affect, normal thought content, normal thought process, oriented x 3 - HEART Score HEART Score: History: Moderately Suspicious HEART Score: ECG: Non-Specific Repolarization Disturbance/LBBB/PM HEART Score: Age: > or = 65 Years HEART Score: Risk Factors for Atherosclerotic Disease: > or = 3 Risk Factors or History of Atherosclerotic Disease HEART Score: Troponin: < or = Normal Limit Total HEART Score:: 6 Progress - PLAN OF CARE/RESULTS Progress/Plan/Lab Results: Vital Signs - 8 hr 11/26/18 09:39 Temperature 97.8 F Pulse Rate 81 Respiratory Rate 14 Blood Pressure 202/152 O2 Sat by Pulse Oximetry 97 Laboratory Results - last 24 hr 11/26/18 11/26/18 11/26/18 10:20 10:20 10:20 WBC 7.47 RBC 5.96 Hgb 18.3 H Hct 54.4 H MCV 91.3 MCH 30.7 MCHC 33.6 RDW Std Deviation 15.6 H Plt Count 201 MPV 10.4 Immature Gran % (Auto) 1.9 H Neut % (Auto) 73.2 Lymph % (Auto) 14.5 L [place] % (Auto) 8.3 Eos % (Auto) 1.7 Baso % (Auto) 0.4 Immature Gran # (Auto) 0.14 H Neut # (Auto) 5.47 Lymph # (Auto) 1.08 L [place] # (Auto) 0.62 H Eos # (Auto) 0.13 Baso # (Auto) 0.03 PT INR PTT (Actin FS) Sodium 139 Potassium 4.3 Chloride 101 Carbon Dioxide 23 L Anion Gap 15 BUN 13 Creatinine 0.7 Estimated GFR/1.73 m2 > 60 BUN/Creatinine Ratio 19 Glucose 175 H Calculated Osmolality 282 Calcium 9.6 Total Bilirubin 0.86 AST 23 ALT 21 Alkaline Phosphatase 91 Troponin T Dqt-C-Ogogkkzfhyq Pept 779 H Total Protein 7.1 Albumin 4.3 Globulin 2.8 Albumin/Globulin Ratio 1.5 11/26/18 11/26/18 10:20 10:20 WBC RBC Hgb Hct MCV MCH MCHC RDW Std Deviation Plt Count MPV Immature Gran % (Auto) Neut % (Auto) Lymph % (Auto) [place] % (Auto) Eos % (Auto) Baso % (Auto) Immature Gran # (Auto) Neut # (Auto) Lymph # (Auto) [place] # (Auto) Eos # (Auto) Baso # (Auto) PT 14.4 INR 1.10 PTT (Actin FS) 32.6 Sodium Potassium Chloride Carbon Dioxide Anion Gap BUN Creatinine Estimated GFR/1.73 m2 BUN/Creatinine Ratio Glucose Calculated Osmolality Calcium Total Bilirubin AST ALT Alkaline Phosphatase Troponin T < 0.010 Dxa-P-Cwabzjziohx Pept Total Protein Albumin Globulin Albumin/Globulin Ratio Orders Category Date Time Status CHEST-1 VIEW [RAD] Stat Exams 11/26/18 09:48 Completed CBC WITH ELECTRONIC DIFF [HEME] Stat Lab 11/26/18 10:20 Completed COMPREHENSIVE METABOLIC PANEL [CHEM] Stat Lab 11/26/18 10:20 Completed PRO B-NATRIURETIC PEPTIDE Stat Lab 11/26/18 10:20 Completed PROTIME WITH INR [COAG] Stat Lab 11/26/18 10:20 Completed PTT [COAG] Stat Lab 11/26/18 10:20 Completed TROPONIN T Stat Lab 11/26/18 10:20 Completed Aspirin Med 11/26/18 10:29 Discontinued 243 mg .ROUTE .STK-MED ONE Aspirin Med 11/26/18 10:29 Discontinued 243 mg PO NOW ONE CefTRIAXONE [Rocephin] 1 gm Med 11/26/18 11:29 Active 0.9% Sodium Chloride Inj [Ns] 50 ml IV NOW Hydromorphone [Dilaudid] Med 11/26/18 09:51 Discontinued 1 mg IV NOW ONE Nitroglycerin Sl [Nitroglycerin] Med 11/26/18 09:50 Active 0.4 mg SL Q5M PRN PRN Ondansetron [Zofran] Med 11/26/18 09:51 Discontinued 4 mg IV NOW ONE EKG [EKG] Stat Ther 11/26/18 09:47 Draft Pt is chest pain free at recheck. Cardiology is coming to see pt now. Result Diagrams: 11/26/18 10:20 11/26/18 10:20 - REASSESSMENT Reassessment #1 Time Reassessed: 11:19 Status: improving (pt rec pain meds in er, sts felt "high.") - CONSULTS/PCP/HOSPITALIST Notification #1 *Consult/PCP/Hospitalist*: saul Time Discussed: 11:26 Consult Disposition: Will see in ED #2 Consult: Shalini Time Discussed: 11:27 Consult Disposition: other Departure - Departure Date of Disposition Decision: 11/26/18 Time of Disposition Decision: 11:38 DIAGNOSIS: Pneumonia, CHF (congestive heart failure), Chest pain, Hypertension Disposition: ADMITTED INPATIENT 09 Certified Medical Emergency: Emergent Condition: Fair Referrals and Follow-Ups: Wagner Pelayo DO [Primary Care Provider] - - Critical Care Note This patient required my direct & personal management of CC.: No Attestation - Physician/ RAMONE Attestation Patient care was provided by Advanced Practice Provider:: No The physician spent face to face time with patient:: Yes Advanced Practice Provider documentation review:: Supervising physician onsite and consulted in the evaluation and care of this patient. The physician did have a face to face encounter with the patient. This chart was documented by the indicated scribe, (Danette Gaffney, Davin) and accurately reflects the services I performed and decisions made by me, Jimmy Watts MD, as attested by the provider's signature.
[2018-11-26] MEDS ORDERED: NITROGLYCERIN TOP ONE (12:53)
[2018-11-26] MEDS ORDERED: ZOFRAN IV PRN (13:19)
[2018-11-26] MEDS ORDERED: TYLENOL PO PRN (13:19)
--- NOTE | 2018-11-26 13:34 | CARDIOLOGY CONSULTATION ---
DATE: 11/26/2018 HISTORY OF PRESENT ILLNESS: Mr. Candelaria is a 73-year-old, gentleman who had severe retrosternal chest discomfort. It started at 9 o'clock this morning and he came to the emergency room. He was also noted to be short of breath. He had taken aspirin, was given Dilaudid in the emergency room. Patient is currently pain-free at the time of my examination. Prior to that, he has known coronary artery disease, having undergone coronary artery bypass grafting. He had been doing well. He was recently admitted in the hospital on 09/10/2018 for a hernia surgery. He was discharged home and he had been taking all his medications in addition to anticoagulation medications regularly. However, as far as Lasix is concerned, he had issues with diuresis. He had been taking that only intermittently as required. He has not had chest pains of this nature and intensity prior to this. There is no history of palpitations. There is no history of syncope. REVIEW OF SYSTEM: A 14-point review of systems was done. GI System: There is no history of nausea, vomiting, diarrhea. There is no history of hematemesis or melena. Central Nervous System: No focal weakness to suggest a CVA or TIA. Genitourinary System: There is no dysuria or hematuria. Musculoskeletal System: He complains of pain in his left leg and also has noticed some edema. Endocrine System: Stable. PAST MEDICAL HISTORY: 1. Coronary artery disease, status post coronary artery bypass grafting, GARCIA to LAD, SVG to OM, SVG to PDA, SVG to diagonal in 2006. The patient states that in 2012, in [place], he had a left heart catheterization. At that time, his grafts were patent. 2. LV dysfunction. Ejection fraction 40 to 45 percent. 3. History of heart failure. 4. Persistent atrial fibrillation. 5. Anticoagulation therapy. 6. Atrial flutter, status post ablation on 04/02/2012. 7. Diabetes. 8. Hypertension. 9. Depression. 10. Sleep apnea. 11. Anticoagulation therapy. 12. Bilateral carotid disease. 13. History of speech disturbance in the past, probably secondary to TIA. 14. Hernia surgery. HOME MEDICATIONS: Valsartan 160 mg daily, Eliquis 5 mg b.i.d., allopurinol 300 mg a day, enteric- coated aspirin 81 mg a day, trazodone 150, Lasix 40. ALLERGIES: He is allergic to Levaquin, Coreg, and ciprofloxacin. PHYSICAL EXAMINATION: Blood pressure when he came in was 202/152. At the time of my examination, blood pressure was 139/86. First and second heart sounds were heard. There was no S3 gallop. Respiratory System: Good air entry. There were no crepitations. Abdomen: Soft, nontender. There was no guarding or rigidity. Bowel sounds were heard. Central Nervous System: Alert and oriented. Was moving all 4 extremities. Examination of the extremities revealed mild edema on his left leg more compared to the right. DIAGNOSTIC DATA: 1. Electrocardiogram revealed atrial fibrillation. 2. Chest x-ray suggestive of heart failure with mild cardiomegaly. LABORATORY EXAMINATION: Revealed sodium 139, potassium 4.3, BUN 13, creatinine 0.7. Troponin, first set normal. ProBNP elevated at 779. WBC 7.47, hemoglobin 18.3, hematocrit 54, platelet count of 201,000. ASSESSMENT AND PLAN: Mr. Jeremiah Candelaria is a 73-year-old, gentleman with a history of hypertension, transient ischemic attack in the past, bilateral carotid disease, coronary artery disease, coronary artery bypass grafting in 2006. Comes with complaints of severe retrosternal chest pain. When he came to the emergency room, was noted to be having severe hypertension. At the time of my examination, blood pressure was under control. A chest x-ray revealed heart failure. RECOMMENDATIONS AND PLAN: 1. Given his symptoms, I have discussed with the patient, we will rule him out for myocardial infarction by cardiac enzymes and plan for left heart catheterization. Risks, benefits, and alternatives were explained to the patient. 2. He has chronic atrial fibrillation. Given his symptoms, I have added Lopressor to his medical regimen at 25 mg twice a day. 3. LV dysfunction. Ejection fraction of 40 to 45 percent. We will get an echocardiogram to reassess cardiac and valvular function. 4. As far as anticoagulation therapy is concerned, we will discontinue the Eliquis and plan for Lovenox prior to his cardiac catheterization. We will also continue with his aspirin. 5. When he came in, his chest x-ray was suggestive of pulmonary edema but on our examination, he was clinically clear. I suspect his diastolic and the combination of diastolic and systolic heart failure was worsened by ischemia. We will plan for testing as above. 6. He has also complained of some pain in his left leg. We will get a venous ultrasound to make sure there is no DVT. I have a low suspicion, given the fact that he has been taking his Eliquis regularly. Thank you for the consult. We will follow hospital course. cc: Christopher Aguilar MD
--- NOTE | 2018-11-26 14:42 | ECHO REPORT ---
ORDER DATE: 11/26/2018 INDICATIONS: Coronary disease, chest pain. Hypertension. FINDINGS: 1. Right atrium is mildly enlarged at 4.2 cm. 2. Mild tricuspid regurgitation. RV systolic pressure of 51. 3. Right ventricle appears to be normal in size with fyxc-[id number]-[id number] reduction in RV systolic function. 4. No significant pulmonic insufficiency. 5. Severe left atrial enlargement. Dimension of 6.2 cm with a volume index of 65. 6. No mitral prolapse. Mild mitral regurgitation. 7. Normal LV size, end-diastolic dimension of 5.6. Normal wall thicknesses with a posterior and interventricular septal wall thickness of 1 cm each. Normal LV systolic function. Estimated EF of 50% to 55% with normal wall motion. 8. Aortic valve appears to open reasonably well. There is no clear evidence of stenosis or insufficiency. 9. Aorta appears normal in visualized segments. 10. No pericardial effusion identified. cc: MD Sherley Martins PA
[2018-11-26 15:24] LABS: HEMOGLOBIN A1C 6.8 % (4.8-6.0)
[2018-11-26] MEDS: LASIX IV SCH ×2 (15:37→20:22)
[2018-11-26] MEDS: LOVENOX SUBQ SCH (15:43)
[2018-11-26] MEDS: LOPRESSOR PO SCH ×3 (15:46→20:40)
[2018-11-26] MEDS: DIOVAN PO SCH (16:48)
[2018-11-26 17:32] LABS: ALLEN TEST YES; BE 1.4 mmoll (-3.0-3.0); BLOOD TYPE ARTERIAL; HCO3-(ACT) 25.9 mmoll (20.0-26.0); METHB 0.2 % (0.0-1.5); O2(CT) 22.9 mL/dL (15.0-23.0); O2HB 93.3 % (95.0-99.0); PCO2(98.6) 43 mmHg (35-45); PO2(98.6) 70 mmHg (60-100); SAMPLE BLOOD; SAO2 94.4 % (95.0-100.0); THB 17.5 g/dL (11.5-17.4)
[2018-11-26 17:33] LABS: MODALITY ROOM AIR
--- NOTE | 2018-11-26 18:03 | HISTORY AND PHYSICAL ---
PRIMARY CARE PROVIDER: Dr. Wagner Pelayo. PRIMARY CRM MARKETING ANALYST: Dr. Rasmussen. CHIEF COMPLAINT: Chest pain. HISTORY OF PRESENT ILLNESS: Mr. Jeremiah Candelaria is a 73-year-old male with a medical history of coronary artery disease with coronary artery bypass grafting that was performed here at [facility] in 2007. States he has not had any cardiac issues since then. He has a history of atrial fibrillation, on Eliquis, and hyperlipidemia. States that around 9 a.m. he was actually attempting a bowel movement, sitting on the toilet, when he developed a sudden onset of chest pressure or chest pain. It felt like an elephant sitting on his chest. He had associated nausea. No vomiting. Positive for diaphoresis, dizziness. The pain radiated into his neck with tingling in bilateral fingers. He took one 81 mg aspirin at home. He got 4 additional doses here. First set of cardiac enzymes were negative. EKG showed an atrial fibrillation with a rate of 87. Rate was controlled. There are no obvious ST elevations. Cardiology was consulted. Chest pain was relieved with medications. He was significantly hypertensive as well when he presented with a 200 systolic. Plan is for a left heart catheterization for tomorrow. He was started on weight-based Lovenox, aspirin, beta raul, and will transfer to [facility], currently pain free. PAST MEDICAL HISTORY: 1. Atrial fibrillation. 2. COPD. 3. Hyperlipidemia. 4. Kidney stones. 5. Congestive heart failure. 6. Coronary artery disease with history of CABG. 7. Anxiety and depression. PAST SURGICAL HISTORY: 1. CABG x4 in 2007 here at [facility]. 2. Umbilical hernia repair. 3. Left inguinal hernia repair and once again, had it repeated recently. 4. Appendectomy. 5. 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 No obvious residuals. 6. Sinus surgery. 7. Recent lithotripsy. SOCIAL HISTORY: Quit smoking 50 years ago. He smoked, he complains, about 4 packs per day for 4 years. Denies alcohol. Actually, says he drinks maybe wine very rarely. Denies any illicit drug use. He lives at home with his and 2 cats. 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 FAMILY HISTORY: Positive for heart disease. ALLERGIES: Levaquin and an intolerance to statin, causes muscle weakness. HOME MEDICATIONS: 1. Trazodone 75 mg p.o. nightly. 2. Aspirin 81 mg p.o. daily. 3. CoQ10 100 mg p.o. daily. 4. Cymbalta 60 mg p.o. daily. 5. Eliquis 5 mg p.o. twice daily. 6. [place] 300 mg p.o. daily. 7. Lasix 40 mg p.o. daily p.r.n. 8. Potassium chloride 10 mEq p.o. p.r.n. 9. Valsartan 160 mg p.o. nightly. 10. Vitamin B complex 1 tablet p.o. daily. 11. Allopurinol 300 mg p.o. nightly. REVIEW OF SYSTEMS: Fourteen point review of systems are complete and all were negative except for those mentioned above in HPI. Denies any shortness of breath or coughing up any colored phlegm. Denies fever or chills. PHYSICAL EXAMINATION: VITAL SIGNS: Temperature 97.8 degrees, heart rate 81, respiratory rate 14, blood pressure 202/152 but most recently, not yet documented, the systolic was 120 and much more controlled. He is 5 foot 9 inches tall, 225 pounds, BMI 33.2. GENERAL: Mr. Jeremiah Candelaria is a 73-year-old male. He is in no acute distress. He is able to answer questions appropriately. HEENT: Atraumatic, normocephalic. Pupils equal, round, reactive to light. Extraocular movements intact. Mucous membranes are moist. He is very hard of hearing. NECK: Trachea midline. CARDIOVASCULAR: Irregularly irregular rate and rhythm. No rubs, gallops, murmurs. Trace lower extremity edema. There are +2 dorsalis and radial pulses. Negative for JVD or carotid bruits. PULMONARY: Clear to auscultation. Bilateral breath sounds. No accessory muscle use or work of breathing noted. Tolerating nasal cannula. GI: Soft, nontender, nondistended. Positive bowel sounds x4. EXTREMITIES: Moves all extremities equally. Full range of motion. NEUROLOGIC: A O x3. Follows commands. Sensory is intact. SKIN: Warm, dry, intact with some discoloration of the lower extremities and color pigment changes, may be venous stasis. LABORATORY DATA: White blood cells 7,000, hemoglobin 18, hematocrit 54, platelet count 201,000. INR is 1.10. PTT is 32.6. Sodium 139, potassium 4.3, BUN 13, creatinine 0.7, glucose 175, calcium 9.6. Bilirubin 0.86, AST 23, ALT 21. Troponin less than 0.01. ProBNP 779. Albumin 4.3. IMAGING: Chest x-ray: Cardiomegaly and pulmonary edema. There was some question as to whether there was pneumonia. EKG: Atrial fibrillation with rate control at 87. ASSESSMENT AND PLAN: 1. Chest pain. Rule out acute coronary syndrome with history of coronary artery disease and coronary artery bypass grafting x4. First set of cardiac enzymes are negative. He is chest pain-free after receiving aspirin, Dilaudid, Zofran, and nitroglycerin, and placed on oxygen. Blood pressure is actually much more controlled after all of those medications. Cardiology, Dr. Aguilar has seen the patient. The plan is for left heart catheterization tomorrow. He has been started on weight-based Lovenox, scheduled on beta raul, metoprolol, and he will be n.p.o. after midnight. We will transfer to [facility] for closer monitoring and an EKG will be repeated for in the morning. 2. History of congestive heart failure, possibly acute on chronic systolic congestive heart failure. Last echocardiogram was performed October of 2017 with an ejection fraction of 40 to 45%, so systolic congestive heart failure. Also with some pulmonary hypertension with 45 mmHg systolic reading. Has been started on Lasix twice a day. Apparently at home he takes Lasix but he states he has not taken it in a while. Tends to only take it when he thinks his legs are swelling. ProBNP is 779. There has been an echocardiogram ordered for today. 3. Atrial fibrillation, chronic. He is on Eliquis but that is going to be put on hold. He is currently on weight-based Lovenox. Rate is currently controlled. Home medications have been verified. 4. Hyperlipidemia. States that he does not take statins due to intolerance. We will check a lipid panel. 5. Hyperglycemia. Denies having diabetes but blood glucose level is 175, so we will get a hemoglobin A1c. 6. History of chronic obstructive pulmonary disease. No complaints at this time. 7. Deep venous thrombosis prophylaxis. On Lovenox. 8. Hypertensive urgency. Blood pressure in the systolic range was in the 200s. This actually quickly resolved and he has been started on metoprolol and his valsartan was resumed. We will get a urinalysis, check protein levels. Dictated by COMFORT Barajas for Shweta Cervantes MD cc: COMFORT Barajas MD
[2018-11-26] MEDS: DESYREL PO SCH (20:20)
[2018-11-26] MEDS: CYMBALTA PO SCH (22:34)
[2018-11-26 23:19] LABS: UR AMPHETAMINES QUAL NONE DETECTED (NONE DETECT); UR BARBITUATES QUAL NONE DETECTED (NONE DETECT); UR BENZODIAZEPIN QUAL NONE DETECTED (NONE DETECT); UR CANNABINOIDS QUAL NONE DETECTED (NONE DETECT); UR COCAINE QUAL NONE DETECTED (NONE DETECT); UR METHADONE QUAL NONE DETECTED (NONE DETECT); UR OPIATES QUAL NONE DETECTED (NONE DETECT); UR OXYCODONE QUAL NONE DETECTED (NONE DETECT); UR PCP QUAL NONE DETECTED (NONE DETECT)
[2018-11-27] MEDS: LOVENOX SUBQ SCH (01:48)
[2018-11-27 05:47] LABS: BASO# 0.03 X1000 (0.0-0.2); BASO% 0.4 % (0.0-0.8); EOS# 0.24 X1000 (0.0-0.7); EOS% 3.3 % (0.0-10.0); HEMATOCRIT 49.2 % (42.0-52.0); HEMOGLOBIN 16.4 g/dL (14.0-18.0); IMM GRAN# 0.13 X1000 (0.0-0.04); IMM GRAN% 1.8 % (0.0-0.5); LYMPH# 1.16 X1000 (1.2-3.4); LYMPH% 15.9 % (20.5-51.1); MCH 31.2 PG (27-31); MCHC 33.3 g/dL (33-37); MCV 93.7 FL (81-99); MONO# 0.83 X1000 (0.11-0.59); MONO% 11.4 % (1.7-9.3); MPV 10.5 FL (7.4-10.4); NEUT# 4.92 X1000 (1.4-6.5); NEUT% 67.2 % (42.2-75.2); PLT 210 X1000 (130-400); RBC 5.25 XMIL (4.7-6.1); RDW 15.4 % (11.5-14.5); WBC 7.31 X1000 (4.8-10.8)
[2018-11-27 06:09] LABS: AGAP 11; ALB/GLOB RATIO 1.3; ALBUMIN 3.7 g/dL (3.5-5.0); ALKALINE PHOSPHATASE 72 U/L (32-122); BUN 19 mg/dL (8-22); CALCIUM 9.4 mg/dL (8.8-10.2); CHLORIDE 101 mmol/L (98-107); COSMO 287; CREATININE 0.9 mg/dL (0.7-1.2); ESTIMATED GFR > 60; GLUCOSE 133 mg/dL (70-104); GOT 18 U/L (10-34); GPT 17 U/L (10-44); MAGNESIUM 1.6 mg/dL (1.5-2.7); POTASSIUM 4.5 mmol/L (3.5-5.1); SODIUM 142 mmol/L (136-145); TCO2 30 mmol/L (25-35); TOTAL BILIRUBIN 0.71 mg/dL (0.20-1.00); TOTAL PROTEIN 6.5 g/dL (6.3-8.3)
--- NOTE | 2018-11-27 07:34 | Diag Imaging Result Doc PS360 ---
EXAM: CHEST-PORTABLE 11/27/2018 HISTORY: Chest pain, infiltrates TECHNIQUE: AP portable at 0524 COMMENT: There is borderline cardiomegaly and increased pulmonary vascularity. The interstitial edema which was present on 11/26/2018 has improved slightly. IMPRESSION: Improved pulmonary edema. Electronically signed by Umesh Alvarado 11/27/2018 7:32 AM
--- NOTE | 2018-11-27 07:53 | EKG Report ---
Test Performed on : 11/27/2018 06:56:13 AM Test Reason : chest pain Blood Pressure : / mmHG Vent. Rate : 061 BPM Atrial Rate : 174 BPM P-R Int : 000 ms QRS Dur : 098 ms QT Int : 470 ms P-R-T Axes : 000 082 018 degrees QTc Int : 473 ms Atrial fibrillation. Abnormal ECG When compared with ECG of 26-NOV-2018 09:30, (Unconfirmed) No significant change was found Confirmed by Dom LANGSTON, Collin Damon ([id number]) on 11/27/2018 9:07:18 AM
[2018-11-27] MEDS: DIOVAN PO SCH (08:10)
[2018-11-27] MEDS: LOPRESSOR PO SCH ×2 (08:10→21:37)
[2018-11-27] MEDS ORDERED: HEPARIN 1000 UNITS/NS 2,000 UNIT/1,000 ML IV.SOLN ONE (08:16)
[2018-11-27] MEDS ORDERED: VICON-C PO SCH (09:00)
[2018-11-27] MEDS ORDERED: ROCEPHIN 1 GM in NS 50 ML IV SCH (09:00)
[2018-11-27] MEDS ORDERED: ASPIRIN PO SCH (09:00)
[2018-11-27] MEDS ORDERED: CLAVE TWINSITE 32 IN 11959 ONE (09:11)
[2018-11-27] MEDS ORDERED: MORPHINE ONE ×3 (09:11→09:51)
[2018-11-27] MEDS ORDERED: NS 1,000 ML ONE (09:11)
[2018-11-27] MEDS ORDERED: VERSED ONE (09:11)
[2018-11-27] MEDS ORDERED: ANESTHESIA PB SET 88 IN 5742 ONE (09:11)
--- NOTE | 2018-11-27 11:48 | Extremity Venous Study ---
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 REFERRING PHYSICIAN: Dr. Sevilla. INDICATION: Edema of the legs. FINDINGS: The deep superficial veins of the bilateral lower extremities are visualized along their course. The left greater saphenous vein is surgically absent, but the remaining veins are compressible with forward flow, and no evidence of intraluminal thrombus. SUMMARY: No deep or superficial venous thrombosis noted in the bilateral lower extremities. cc: MD Sherley Constantino PA
[2018-11-27] MEDS: LASIX IV SCH ×2 (12:26→21:36)
--- NOTE | 2018-11-27 12:36 | EKG Report ---
Test Performed on : 11/27/2018 12:29:19 PM Test Reason : S/P C Blood Pressure : / mmHG Vent. Rate : 068 BPM Atrial Rate : 060 BPM P-R Int : 000 ms QRS Dur : 102 ms QT Int : 456 ms P-R-T Axes : 000 069 041 degrees QTc Int : 484 ms Atrial fibrillation. Prolonged QT Abnormal ECG When compared with ECG of 27-NOV-2018 06:56, No significant change was found Confirmed by Dom LANGSTON, Collin Damon ([id number]) on 11/27/2018 1:08:13 PM
[2018-11-27] MEDS ORDERED: NS 1,000 ML IV SCH (13:00)
--- NOTE | 2018-11-27 14:07 | PROGRESS NOTE ---
DATE: 11/27/2018 INTERVAL HISTORY: Underwent coronary angiography which the result of it is pending. However, according to my discussion with the cardiology team, he did have significant coronary artery disease and he is to be transferred to [facility]. SUBJECTIVE: The patient denies any more chest pain. His shortness of breath is currently at baseline. He is not coughing. He has not had any fever spike. The patient's family is at bedside. VITAL SIGNS: Currently, temperature 98.5 degrees, pulse 68, respiratory rate 18, blood pressure 120/77, he is saturating 94% on room air. PHYSICAL EXAMINATION: General: Does not appear in acute distress. Oral cavity is moist. Lungs: Air entry bilaterally equal. No wheeze, rhonchi. He had inspiratory crackles at bilateral infraaxillary region. Cardiovascular: S1, S2 normal. Irregularly irregular. No murmur, rub, or gallop. Abdomen: Obese, soft, nontender. No hepatojugular reflex. No lower extremity edema. Input and output suggests -1.2 L yesterday. LABS: Suggestive of normal hemoglobin, normal platelet count, essentially normal electrolytes. His magnesium was 1.6 which I am repleting with 2 g. ASSESSMENT AND PLAN: 1. Acute hypoxic respiratory failure due to acute pulmonary edema in the setting of chronic systolic congestive heart failure with mild exacerbation. Continue intravenous diuresis. Continue oxygenation to maintain saturation more than 94%. 2. Anginal chest pain when history of coronary artery disease and coronary artery bypass graft in 2006. Official read of coronary angiography is pending. However, I have been informed that he does have significant coronary artery disease which would require intervention. He does not have elevated troponins or significant ST changes on electrocardiogram. Continue management as per cardiology recommendations including aspirin, metoprolol, and nitroglycerin. 3. Congestive heart failure with reduced ejection fraction, chronic systolic congestive heart failure. Repeat echocardiogram suggests improvement in ejection fraction. Continue oral valsartan and metoprolol. 4. Disposition. I will continue to monitor the patient inside the hospital as we await transfer to [facility]. Plan of care discussed with the patient and his questions have been answered. cc: MD SARA Rueda
[2018-11-27] MEDS: MAGNESIUM SULFATE 2 GM/S.W.I. 2 GM/50 ML IVPB IV SCH ×2 (15:02→17:37)
[2018-11-27] MEDS: DESYREL PO SCH (21:35)
[2018-11-27] MEDS: CYMBALTA PO SCH (21:36)
[2018-11-28 02:53] VITALS: BP 107/70
[2018-11-28 06:07] LABS: AGAP 11; BUN 19 mg/dL (8-22); CALCIUM 8.9 mg/dL (8.8-10.2); CHLORIDE 98 mmol/L (98-107); COSMO 283; CREATININE 0.8 mg/dL (0.7-1.2); ESTIMATED GFR > 60; GLUCOSE 151 mg/dL (70-104); MAGNESIUM 1.9 mg/dL (1.5-2.7); POTASSIUM 4.4 mmol/L (3.5-5.1); SODIUM 139 mmol/L (136-145); TCO2 30 mmol/L (25-35)
--- NOTE | 2018-11-28 09:34 | DISCHARGE SUMMARY ---
ADMISSION DATE: 11/26/2018 DISCHARGE DATE: 11/28/2018 DISCHARGE DISPOSITION: Patient is being transferred to [facility] for coronary intervention. DISCHARGE CONDITION: Hemodynamically stable. He is alert, oriented x3. Denies any more chest pain. Denies any shortness of breath. Denies any palpitation. DISCHARGE DIAGNOSES: 1. Acute hypoxic respiratory failure due to acute pulmonary edema. 2. Chronic systolic congestive heart failure with mild acute exacerbation. 3. Anginal chest pain with history of coronary artery disease and coronary artery bypass grafting in 2006. 4. History of chronic systolic congestive heart failure. 5. Essential hypertension. OTHER DIAGNOSES: 1. History of chronic atrial fibrillation. 2. History of chronic obstructive pulmonary disease. 3. History of nephrolithiasis. 4. History of anxiety and depression. 5. 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 6. Past history of tobacco, which he quit 50 years ago. 7. History of chronic obstructive pulmonary disease related to dust exposure. DISCHARGE MEDICATIONS: He is currently on trazodone 75 mg at nighttime, aspirin 81 mg daily, COQ- 10 one capsule daily, duloxetine 60 mg daily, Colony 150 mg capsule 2 capsules daily, furosemide 40 mg daily as needed for lower extremity edema or shortness of breath, potassium chloride 10 mEq p.o. as needed, valsartan 160 mg at nighttime, vitamin B complex 1 tablet daily, allopurinol 300 mg at nighttime, nitroglycerin 0.4 mg sublingual every 5 minutes as needed for chest pain, metoprolol 25 mg b.i.d. which was started during this admission, acetaminophen 650 mg as needed for pain. 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 He underwent coronary angiography. The final results of which are pending, however, verbally I have been informed that he had coronary artery disease which would require intervention. He is being transferred to [facility] for that. VITAL SIGNS: Temperature 98.2 degrees, pulse 64, respiratory rate 18, blood pressure 110/70, saturating 98% on 2 L nasal cannula. PHYSICAL EXAMINATION: General: Does not appear in any acute distress. Oral cavity is moist. Air entry bilaterally equal. No wheeze, rhonchi, or crackles. S1, S2 normal, irregularly irregular. No murmur, rub or gallop. Abdomen is soft, nontender. No lower extremity edema. He is alert and oriented x3. LABS: At the time of discharge, WBC 7.31, hemoglobin 16.4, platelets 210,000. His potassium is 4.4, creatinine 0.8. His magnesium is 1.9. His troponins were less than 0.010. His proBNP was 779. His urine toxicology was unremarkable. Significant microbiology during hospital admission, both blood cultures have not shown any growth. SIGNIFICANT IMAGING DURING HOSPITAL ADMISSION: Chest x-ray on admission had cardiomegaly and pulmonary edema. Echocardiogram had suggested normal left ventricular systolic function with ejection fraction of 50 to 55% with normal wall motion. Extremity venous studies did not have any superficial or deep venous thrombosis. Chest x-ray subsequently on November 27 had improved pulmonary edema. Electrocardiogram performed on the day of presentation had atrial fibrillation with premature ventricular or aberrantly conducted complexes, nonspecific ST abnormality. HOSPITAL COURSE SUMMARY: Mr. Candelaria is a [id number] man with past medical history of coronary artery disease requiring CABG in 2006, who came in 11/26/2018 with chief complaints of chest pain. At around 9 a.m. he was attempting to have a bowel movement, sitting on the toilet when he suddenly developed sudden onset chest pressure which felt like elephant was sitting on his chest associated with that he had nausea, diaphoresis, dizziness and radiation of the pain to neck with tingling in bilateral fingers, so he decided to come to the emergency room where the 1st set of cardiac enzymes were negative and EKG had atrial fibrillation with controlled ventricular response. He was given nitroglycerin and intravenous opioids, only after that his chest pain improved. Noticeably on arrival, his systolic blood pressure was 200 mmHg. Considering his anginal chest pain, he was admitted for further management. He was also found to be in shortness of breath, so he was started on IV diuresis and most of his home medications were resumed except Eliquis. Coronary angiography the next day had detected significant coronary artery disease, the details of which are currently not available in the computer for me. However, I have been verbally informed that it was significant disease and Cardiology team at [facility] had conveyed this to the Cardiology team at [facility] and the patient will be transferred to [facility] for further intervention. TIME SPENT: Less than 30 minutes were spent discharging this patient. All of his questions at the time of discharge were answered. cc: Johnny Javier MD MTDPerry
--- NOTE | 2018-12-06 08:24 | CARDIAC CATH REPORT ---
DATE: 11/27/2018 PROCEDURE PERFORMED: Left heart catheterization with selective coronary angiography, bypass graft angiography, and left ventriculography. INDICATIONS FOR PROCEDURE: Recurrent angina suspicious for unstable angina in a patient with known coronary disease and previous coronary bypass grafting. ENTRY SITE: Right femoral artery. CATHETERS USED: 5-Cymraes JL4, JR4, and angled pigtail. TECHNIQUE: After intravenous sedation with morphine and Versed, local anesthesia with lidocaine was applied over right femoral artery. Arterial access was established with placement of a 5- Cymraes sheath in the right femoral artery using modified Seldinger technique. Selective coronary angiography was performed followed by bypass graft angiography, left heart catheterization, and left ventriculography. Upon completion of the procedure, arterial sheath was removed from right femoral artery and hemostasis facilitated with manual pressure. Patient tolerated the procedure without apparent complications. FINDINGS: Hemodynamics: Aortic pressure 106/59, left ventricular pressure 100 over EDP of 26. Comments on Hemodynamics: There is no significant gradient across aortic valve demonstrated on pullback from the left ventricle. ANGIOGRAPHY: 1. Left ventriculogram: The left ventricle is of normal size. There is akinesis of the basal to mid inferior wall. Estimated left ventricular ejection fraction approximately 45%. There is mild to moderate mitral regurgitation. 2. Left main coronary: Left main coronary is free of significant coronary stenosis. 3. Left anterior descending coronary. Left anterior descending coronary demonstrates a severe (80%) stenosis proximally. The first diagonal branch arises from proximal left anterior descending coronary is occluded. Left anterior descending coronary is subsequently occluded. 4. Left circumflex coronary: Left circumflex coronary gives rise to a small first obtuse marginal immediately after its origin. 5. Ramus intermedius. A small ramus intermedius branch is present and has significant diffuse atherosclerosis. 6. Left circumflex coronary. The left circumflex coronary gives rise to a medium sized 1st obtuse marginal. The first obtuse marginal demonstrates severe proximal atherosclerotic narrowing and diffuse atherosclerosis. The mid left circumflex coronary demonstrates mild atherosclerotic narrowing. The distal left circumflex coronary demonstrates diffuse coronary atherosclerosis, and is relatively small. 7. Right coronary. Dominant right coronary is occluded proximally just after a stented region. Right ventricular branch arises from the stented region, and demonstrates a severe (greater than 90%) proximal stenosis. The vessel was relatively smaller caliber. 8. Left internal mammary artery graft to left anterior descending coronary. This graft is patent. However, the distal graft just prior to the anastomosis demonstrates a moderate to severe (75%) stenosis. Just after touch down of the graft, the left anterior descending coronary artery also demonstrates a moderate (70%) focal stenosis. 9. Saphenous vein graft to first obtuse marginal. This graft is patent, and demonstrates mild diffuse irregularities/atherosclerosis. 10. Saphenous vein graft to posterior descending artery. This graft is patent and also demonstrates mild diffuse coronary atherosclerosis. 11. Saphenous vein graft to first diagonal. This graft is patent. CONCLUSIONS: 1. Mildly reduced left ventricular systolic function in setting of akinesis of the basal to mid inferior wall consistent with previous inferior infarction. 2. Mild to moderate mitral regurgitation. 3. Severe multivessel coronary atherosclerosis. Essentially, patient is graft dependent. 4. Moderate to severe stenosis distally just prior to anastomosis and left internal mammary artery graft to left anterior descending coronary, and moderate stenosis in left anterior descending coronary just after touch down of graft. 5. Patent saphenous vein graft to 1st obtuse marginal with diffuse atherosclerosis, patent saphenous vein graft to posterior descending artery with mild to diffuse atherosclerosis, and patent saphenous vein graft to the first diagonal branch. cc: Jono Rasmussen MD [facility]
== END 2018-11-28 08:10 | disposition short-term general hospital (02) | DRG 286 ==
LOC: ED 09:32 → 2N 13:39 → SUATTDRO 13:39
PROVIDERS: ATTEND Internal Medicine